=== PATIENT | female | born 1960 | race Caucasian/White ===

== ENCOUNTER 2016-12-23 10:17 | Emergency (ER) | payer MEDICAID ==
[2016-12-23 10:25] VITALS: BP 177/98
[2016-12-23] MEDS ORDERED: Aspirin 81 MG Tab.Chew PO ONE (10:44)
[2016-12-23] MEDS ORDERED: Sodium Chloride 0.9% 10 ML Syringe FLUSH PRN ×2 (11:10→13:38)
--- NOTE | 2016-12-23 11:16 | EDM.PDOC ---
ED HPI GENERAL MEDICAL PROBLEM - General Chief Complaint: Chest Pain Stated Complaint: CHEST PAIN AND RT ARM PAIN Time Seen by Provider: 12/23/16 11:00 Source of Information: Reports: Patient History Limitations: Reports: No Limitations - History of Present Illness INITIAL COMMENTS - FREE TEXT/NARRATIVE: 56-year-old female presents for evaluation and treatment of chest pain. Patient reports that the chest pain began about 6 PM last evening. She states that the pain is located on the right side of her chest and radiates into her right arm, right side of her neck and into her back. She describes it as a sharp, constant sensation. She states that is a 10 out of 10. She is anxious and reports that she feels better when she paces. She states that she can't catch a full breath. States that it hurts to take a deep breath. She reports associated symptoms of nausea, fatigue, diaphoresis and a headache. She denies any fevers, cough, dizziness, syncope, lightheadedness, pain in her legs or swelling in her legs. She tried taking some ibuprofen arouns 4am this morning but did not have any pain relief. Denies any history of cardiac problems. She states that she does have high blood pressure but is not on any medications for this. Blood pressure upon my examination at 1105 was 152/64. She does not know if she has high cholesterol. She is not a diabetic. She was given 4 aspirin upon arrival to the ER. Reports that she went to [place] several weeks ago. Patient reports that she's had shingles in her right arm. This pain feels similar. She was on an antibiotic recently for bladder infection. Last week, Patient was found to have a fracture in her right foot. Apparently the fracture occurred in March. She states she only had this x-ray last week and found that she had a fracture in her foot. 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 [No Known Home Meds] 12/23/16 [History] Past Medical History Genitourinary History: Reports: UTI, Recurrent Musculoskeletal History: Reports: Fracture Other Musculoskeletal History: right ankle Endocrine/Metabolic History: Reports: Obesity/BMI 30+ - Past Surgical History HEENT Surgical History: Reports: Tonsillectomy Female Surgical History: Reports: Hysterectomy Social & Family History - Family History Family Medical History: Noncontributory - Tobacco Use Smoking Status *Q: Never Smoker - Caffeine Use Caffeine Use: Reports: Coffee - Recreational Drug Use Recreational Drug Use: No ED ROS GENERAL - Review of Systems Review Of Systems: See Below Constitutional: Reports: Fatigue, Diaphoresis. Denies: Fever Respiratory: Reports: Shortness of Breath Cardiovascular: Reports: Chest Pain (right sided) GI/Abdominal: Reports: Nausea. Denies: Abdominal Pain, Vomiting : Reports: Other (recent bladder infection, symptoms resolving) Musculoskeletal: Reports: Neck Pain (right lateral neck), Shoulder Pain (right) , Arm Pain (right), Back Pain (right upper). Denies: Leg Pain Neurological: Reports: Headache. Denies: Dizziness, Syncope ED EXAM, GENERAL - Physical Exam Exam: See Below Exam Limited By: No Limitations General Appearance: Alert, WD/WN, Mild Distress, Obese Eye Exam: Bilateral Eye: Conjunctival Injection Ears: Normal External Exam Nose: Normal Inspection Throat/Mouth: Normal Inspection, Normal Lips, Normal Gums, Normal Voice, No Airway Compromise Neck: Normal Inspection, Supple, Tender Lateral (right) Respiratory/Chest: No Respiratory Distress, Lungs Clear, Normal Breath Sounds Cardiovascular: Normal Peripheral Pulses, Regular Rate, Rhythm, No Murmur Peripheral Pulses: 2+: Radial (L), Radial (R), Posterior Tibial (L), Posterior Tibial (R), Dorsalis Pedis (L), Dorsalis Pedis (R) GI/Abdominal: Normal Bowel Sounds, Soft, Non-Tender Back Exam: Normal Inspection Extremities: Normal Inspection, Limited Range of Motion (to the right arm due to pain, unablt to extend arm or fullt abduct arm due to pain) Neurological: Alert, Oriented, Normal Cognition Psychiatric: Normal Affect, Normal Mood Skin Exam: Warm, Dry, Normal Color. No: No Rash EKG INTERPRETATION EKG Date: 12/23/16 Time: 10:20 Rhythm: NSR Rate (Beats/Min): 89 [place]: Normal P-Wave: Present QRS: Normal ST-T: Normal QT: Normal EKG Interpretation Comments: NST at [address]/T wave changes. No LAD/LVH. Reviewed by myself and Dr. Martinez. Course - Vital Signs Last Recorded V/S: Last Vital Signs Temp 36.0 C 12/23/16 10:20 Pulse 78 12/23/16 15:45 Resp 18 12/23/16 15:45 BP 177/98 H 12/23/16 10:20 Pulse Ox 100 12/23/16 15:45 - Orders/Labs/Meds Orders: Active Orders 24 hr Category Date Time Status Cardiac Monitoring [RC] . DIRECTED Care 12/23/16 11:10 Active EKG 12 Lead [EKG Documentation Completion] [RC] STAT Care 12/23/16 10:35 Active Peripheral IV Care [RC] . DIRECTED Care 12/23/16 11:10 Active Peripheral IV Insertion Adult [OM.PC] Routine Oth 12/23/16 11:10 Ordered Labs: Laboratory Tests 12/23/16 12/23/16 12/23/16 Range/Units 10:33 10:33 10:33 WBC 5.87 (3.98-10.04) K/mm3 RBC 4.91 (3.98-5.22) M/mm3 Hgb 14.0 (11.2-15.7) gm/L Hct 42.9 (34.1-44.9) % MCV 87.4 (79.4-94.8) fl MCH 28.5 (25.6-32.2) pg MCHC 32.6 (32.2-35.5) g/dl RDW Std Deviation 45.2 (36.4-46.3) fL Plt Count 256 (182-369) K/mm3 MPV 9.4 (9.4-12.3) fl Neut % (Auto) 63.6 (34.0-71.1) % Lymph % (Auto) 17.9 L (19.3-51.7) % [place] % (Auto) 10.4 (4.7-12.5) % Eos % (Auto) 7.5 H (0.7-5.8) Baso % (Auto) 0.3 (0.1-1.2) % Neut # (Auto) 3.73 (1.56-6.13) K/mm3 Lymph # (Auto) 1.05 L (1.18-3.74) K/mm3 [place] # (Auto) 0.61 H (0.24-0.36) K/mm3 Eos # (Auto) 0.44 H (0.04-0.36) K/mm3 Baso # (Auto) 0.02 (0.01-0.08) K/mm3 PT 10.7 (8.0-13.0) SECONDS INR 0.98 APTT 26 (22-36) SECONDS D-Dimer, Quantitative (0.19-0.59) mg/L Sodium (136-145) mEq/L Potassium (3.5-5.1) mEq/L Chloride (98-107) mEq/L Carbon Dioxide (21-32) mEq/L Anion Gap (5-15) BUN (7-18) mg/dL Creatinine (0.55-1.02) mg/dL Est Cr Clr Drug Dosing mL/min Estimated GFR (MDRD) (>60) mL/min BUN/Creatinine Ratio (14-18) Glucose (74-106) mg/dL Calcium (8.5-10.1) mg/dL Total Bilirubin (0.2-1.0) mg/dL AST (15-37) U/L ALT (14-59) U/L Alkaline Phosphatase (46-116) U/L CK-MB (CK-2) < 0.5 (0-3.6) ng/ml Troponin I < 0.017 (0.00-0.056) ng/mL Total Protein (6.4-8.2) g/dl Albumin (3.4-5.0) g/dl Globulin gm/dL Albumin/Globulin Ratio (1-2) Lipase (73-393) U/L 12/23/16 12/23/16 Range/Units 10:33 10:33 WBC (3.98-10.04) K/mm3 RBC (3.98-5.22) M/mm3 Hgb (11.2-15.7) gm/L Hct (34.1-44.9) % MCV (79.4-94.8) fl MCH (25.6-32.2) pg MCHC (32.2-35.5) g/dl RDW Std Deviation (36.4-46.3) fL Plt Count (182-369) K/mm3 MPV (9.4-12.3) fl Neut % (Auto) (34.0-71.1) % Lymph % (Auto) (19.3-51.7) % [place] % (Auto) (4.7-12.5) % Eos % (Auto) (0.7-5.8) Baso % (Auto) (0.1-1.2) % Neut # (Auto) (1.56-6.13) K/mm3 Lymph # (Auto) (1.18-3.74) K/mm3 [place] # (Auto) (0.24-0.36) K/mm3 Eos # (Auto) (0.04-0.36) K/mm3 Baso # (Auto) (0.01-0.08) K/mm3 PT (8.0-13.0) SECONDS INR APTT (22-36) SECONDS D-Dimer, Quantitative 0.36 (0.19-0.59) mg/L Sodium 139 (136-145) mEq/L Potassium 3.6 (3.5-5.1) mEq/L Chloride 103 (98-107) mEq/L Carbon Dioxide 24 (21-32) mEq/L Anion Gap 15.6 H (5-15) BUN 13 (7-18) mg/dL Creatinine 1.2 H (0.55-1.02) mg/dL Est Cr Clr Drug Dosing 47.84 mL/min Estimated GFR (MDRD) 46 (>60) mL/min BUN/Creatinine Ratio 10.8 L (14-18) Glucose 152 H (74-106) mg/dL Calcium 8.9 (8.5-10.1) mg/dL Total Bilirubin 0.4 (0.2-1.0) mg/dL AST 32 (15-37) U/L ALT 64 H (14-59) U/L Alkaline Phosphatase 126 H (46-116) U/L CK-MB (CK-2) (0-3.6) ng/ml Troponin I (0.00-0.056) ng/mL Total Protein 8.7 H (6.4-8.2) g/dl Albumin 3.9 (3.4-5.0) g/dl Globulin 4.8 gm/dL Albumin/Globulin Ratio 0.8 L (1-2) Lipase 131 (73-393) U/L Meds: Medications Discontinued Medications Generic Name Dose Route Start Last Admin Trade Name Freq PRN Reason Stop Dose Admin Aspirin 324 mg 12/23/16 10:44 12/23/16 10:48 Aspirin PO 12/23/16 10:45 324 mg ONETIME ONE Administration Hydromorphone HCl 1 mg 12/23/16 11:22 12/23/16 11:31 Dilaudid IVPUSH 12/23/16 11:23 1 mg ONETIME ONE Administration Hydromorphone HCl 1 mg 12/23/16 13:11 12/23/16 13:21 Dilaudid IVPUSH 12/23/16 13:12 1 mg ONETIME ONE Administration Sodium Chloride 1,000 mls @ 999 mls/hr 12/23/16 12:00 12/23/16 12:06 Normal Saline IV 12/23/16 13:00 999 mls/hr ONETIME ONE Administration Sodium Chloride 100 mls @ 65 mls/hr 12/23/16 13:45 12/23/16 13:59 Normal Saline IV 65 mls/hr ASDIRECTED [place] Administration Iopamidol 100 ml 12/23/16 13:38 12/23/16 13:59 Isovue-370 (76%) IVPUSH 12/23/16 13:39 100 ml ONETIME ONE Administration Ondansetron HCl 4 mg 12/23/16 11:22 12/23/16 11:29 Zofran IVPUSH 12/23/16 11:23 4 mg ONETIME ONE Administration Sodium Chloride 10 ml 12/23/16 11:10 12/23/16 11:26 Saline Flush FLUSH 10 ml ASDIRECTED PRN Administration Keep Vein Open Sodium Chloride 10 ml 12/23/16 13:38 12/23/16 13:59 Saline Flush FLUSH 10 ml ONETIME PRN Administration IV FLUSH - Radiology Interpretation Free Text/Narrative:: chest [address] Desai: Nothing acute is identified on portable chest xray chest CT pulmonary angiogram impression per Dr. Desai: 1. Atherosclerotic change within the thoracic aorta. Slight aneurysmal dilatation of the ascending aorta 3.9cm. No dissection is seen. 2. Incidental cyst within the liver. 3. No additional abnormality is identified on CT study of the chest. - Re-Assessments/Exams Free Text/Narrative Re-Assessment/Exam: 12/23/16 12:55 Labs returned wbc is 5.87, hgb is 14.0 and plts are 256 sodium is 139, potassium is 3.6 and chloride is 103. anion gap is 15.6. gluclose is 152 AST is 32, ALT is 64 and alk phos is 126 pt is 10.7, INR is 0.98 PTT is 26 CKMB is <0.5 trop is <0.017 d dimer is within normal limits at 0.36 lipase is 131 I reviewed the labs, ekg and chest xray with the patient. I discussed with her further imaging. At this time pain is a 4 or 5 out of 10 with 1mg IV Dilaudid. I am concerned she continues to have such severe pain. She looks uncofotable but no obvious distress. We decided to go ahead and get a chest CT and rule out a dissection or lung mass. 12/23/16 15:[address] results with the patient. I feel she likely has prodromal shingles. Will prescribe her something for pain. Follow-up with her primary care provider this week. We discussed the ascending aortic aneurysm of 3.9 cm. I encouraged her to follow-up with her primary care provider about this. She will likely require monitoring of the aneurysm. She may also need a CT of the abdomen to rule out further aneurysms. Discharge instructions as documented. Departure - Departure Time of Disposition: 15:32 Disposition: Home, Self-Care 01 Condition: Fair Clinical Impression: Atypical chest pain Instructions: Chest Wall Pain Referrals: Vee Oviedo PA-C [Primary Care Provider] - Forms: ED Department Discharge Additional Instructions: percocoet 5-325 #20 given through [facility] you were given medication in the ER that can affect your ability to drive and operate machinery. Do not drive or operate machinery within 12 hours of taking prescription narcotic pain medication. Go home and rest. Percocet 1-2 tabs every 4-6 hours as needed for severe pain. Do not drive or operate machinery within 12 hours of taking the Percocet. Percocet can be habit- forming, I recommend you take as few of these as needed to control your pain. Follow up with your primary care provider early this week. Discuss the ascending aortic aneurysm of 3.9 cm. Also follow-up on your pain and symtpoms. Please return to the ER if your symptoms change or worsen. - My Orders Last 24 Hours: My Active Orders 12/23/16 10:35 EKG 12 Lead [EKG Documentation Completion] [RC] STAT 12/23/16 11:10 Cardiac Monitoring [RC] . DIRECTED Peripheral IV Care [RC] . DIRECTED Peripheral IV Insertion Adult [OM.PC] Routine - Assessment/Plan Last 24 Hours: My Active Orders 12/23/16 10:35 EKG 12 Lead [EKG Documentation Completion] [RC] STAT 12/23/16 11:10 Cardiac Monitoring [RC] . DIRECTED Peripheral IV Care [RC] . DIRECTED Peripheral IV Insertion Adult [OM.PC] Routine
[2016-12-23] MEDS ORDERED: Ondansetron 4 MG/2 ML SDV IVPUSH ONE (11:22)
[2016-12-23] MEDS ORDERED: HYDROmorphone 1 MG/ML Syringe IVPUSH ONE ×2 (11:22→13:11)
[2016-12-23] MEDS ORDERED: Sodium Chloride 0.9% 1,000 ML IV ONE (12:00)
[2016-12-23] MEDS ORDERED: Iopamidol 755 Mg/ML 100 ML Bottle IVPUSH ONE (13:38)
[2016-12-23] MEDS ORDERED: Sodium Chloride 0.9% 100 ML IV SCH (13:45)
--- NOTE | 2016-12-23 14:44 | CT ---
CT chest Technique: Multiple axial sections through the chest were obtained. Reconstructed intravenous contrast was utilized. Study has been performed as an aortogram exam. Findings: Pulmonary arteries show no filling defects to indicate pulmonary embolism. Aorta shows mild atherosclerotic change. Ascending aorta is slightly aneurysmal at 3.9 cm. Descending aorta at the same level measures 2.5 cm. No aortic dissection is seen. Low-density lesion is noted within the left lobe of the liver measuring approximately 1.3 cm in size which has Hounsfield unit measurements of a cyst. Mediastinum and hilar regions show no adenopathy or mass. No axillary adenopathy is seen. Mild areas of atelectasis is seen posteriorly within both lung bases as well as dependent atelectasis within both upper lungs. Lungs otherwise are clear. Bone window settings were reviewed which shows no acute bony abnormality. Impression: 1. Atherosclerotic change within the thoracic aorta. Slight aneurysmal dilatation of the ascending aorta 3.9 cm. No dissection is seen. 2. Incidental cyst within the liver. 3. No additional abnormality is identified on CT study of the chest. Diagnostic code #2
--- NOTE | 2016-12-23 14:46 | CR ---
Chest: Portable view of the chest was obtained. Comparison: No previous chest x-ray. Heart size and mediastinum are normal. Lungs are clear. Bony structures are grossly intact. Impression: 1. Nothing acute is identified on portable chest x-ray. Diagnostic code #1
== END 2016-12-23 15:40 | disposition home or self-care (01) ==
LOC: JD.ED 10:17
DX: R07.89 Other chest pain (principal); E66.9 Obesity, unspecified; Z91.040 Latex allergy status; Z87.440 Personal history of urinary (tract) infections; Z98.890 Other specified postprocedural states; Z90.710 Acquired absence of both cervix and uterus; Z68.33 Body mass index [BMI] 33.0-33.9, adult
CPT/HCPCS: 36415; 71010; 71275; 80053; 82553; 83690; 84484; 85025; 85379; 85610; 85730; 93005; 96361; 96374; 96375; 96376; 99285; A9270; J1170; J2405; J7030; J7040; J7050; Q9967; 99284

== ENCOUNTER 2020-03-09 06:05 | Emergency (ER) | payer BC ==
[2020-03-09 06:27] VITALS: BP 137/77; PULSE 88
--- NOTE | 2020-03-09 06:34 | EDM.PDOC ---
ED HPI GENERAL MEDICAL PROBLEM <Victor Hugo Cruz - Last Filed: 03/09/20 07:21> <Bandar Moreno - Last Filed: 03/09/20 09:07> - General Chief Complaint: Head Injury Stated Complaint: covid positive head injury Time Seen by Provider: 03/09/20 06:22 - History of Present Illness INITIAL COMMENTS - FREE TEXT/NARRATIVE: 59-year-old female presents the emergency room with a head injury. At approximately 430 this morning the patient was taken a shower she fell backwards striking her right parietal region on the tub. Apparently the patient was making some unusual gasping noise immediately after this this did not last very long she did not have a postictal phase following that she just says it hurts to think at this point otherwise is alert and oriented x3 she has not had any nausea or vomiting. Patient has not had any other symptoms. She is fully ambulatory. Patient is COVID positive at this point she was tested last week and the results came back positive on she does have a cough. (Victor Hugo Cruz) - Related Data Allergies Allergy/AdvReac Type Severity Reaction Status Date / Time latex Allergy Anaphylactic Verified 03/09/20 06:27 Shock Home Meds: Home Meds . [No Known Home Meds] 12/23/16 [History] Past Medical History Genitourinary History: Reports: UTI, Recurrent Musculoskeletal History: Reports: Fracture Other Musculoskeletal History: right ankle Endocrine/Metabolic History: Reports: Obesity/BMI 30+ - Past Surgical History HEENT Surgical History: Reports: Tonsillectomy Female Surgical History: Reports: Hysterectomy <Victor Hugo Cruz - Last Filed: 03/09/20 07:21> Social & Family History - Family History Family Medical History: Noncontributory - Caffeine Use Caffeine Use: Reports: Coffee <Victor Hugo Cruz - Last Filed: 03/09/20 07:21> ED ROS GENERAL - Review of Systems Review Of Systems: See Below Constitutional: Reports: No Symptoms HEENT: Reports: No Symptoms Respiratory: Reports: Cough. Denies: No Symptoms, Shortness of Breath, Wheezing, Pleuritic Chest Pain, Sputum, Hemoptysis Cardiovascular: Reports: No Symptoms Endocrine: Reports: No Symptoms GI/Abdominal: Reports: No Symptoms : Reports: No Symptoms Musculoskeletal: Reports: No Symptoms Skin: Reports: No Symptoms Neurological: Reports: Headache (Resulting from the fall no other symptoms other than she feels like she does not think as good as she should.) Psychiatric: Reports: No Symptoms <Victor Hugo Cruz - Last Filed: 03/09/20 07:21> ED EXAM, HEAD INJURY - Physical Exam Exam: See Below Exam Limited By: No Limitations General Appearance: Alert, No Apparent Distress Head: Other (She has palpable tenderness over the right parietal area) Nexus Criteria: No: Posterior, Midline Cervical Tenderness, Evidence of Intoxication, Altered Level of Consciousness, Focal Neurological Deficit, Painful Distraction Injuries Eyes: Bilateral Eye: EOMI, Normal Inspection, PERRL Ears: Normal External Exam, Normal Canal, Hearing Grossly Normal, Normal TMs Nose: Normal Inspection, Normal Mucousa, No Blood Throat/Mouth: Normal Inspection, Normal Lips, Normal Teeth, Normal Gums, Normal Oropharynx, Normal Voice, No Airway Compromise Neck: Non-Tender, Full Range of Motion, Normal Alignment, Normal Inspection. No: Spinous Processes Tender, Tenderness, Tender Lateral, Tender Midline Respiratory: No Respiratory Distress, Lungs Clear, Normal Breath Sounds Cardiovascular: Regular Rate, Rhythm, No Edema, No Murmur GI/Abdominal Exam: Normal Bowel Sounds, Soft, Non-Tender Neurologic: Other (Annual nerves II through XII grossly intact all muscle groups in all 4 extremities are equal and appropriate bilaterally. Cerebellar testing is normal deep tendon reflexes at the brachial radialis is equal and appropriate bilaterally) - [place] Coma Score Best Eye Response ([place]): (4) Open Spontaneously Best Verbal Response ([place]): (5) Oriented Best Motor Response ([place]): (6) Obeys Commands <Victor Hugo Cruz - Last Filed: 03/09/20 07:21> Course <Bandar Moreno - Last Filed: 03/09/20 09:07> - Vital Signs Last Recorded V/S: Last Vital Signs Temp 96.9 F 03/09/20 06:20 Pulse 88 03/09/20 06:20 Resp 18 03/09/20 06:20 BP 137/77 03/09/20 06:20 Pulse Ox 98 03/09/20 06:20 - Orders/Labs/Meds Orders: Active Orders 24 hr Category Date Time Status Head wo Cont [CT] Stat Exams 03/09/20 06:51 Taken - Re-Assessments/Exams Free Text/Narrative Re-Assessment/Exam: 03/09/20 09:[address] Cruz. The head CT shows nothing acute. (Bandar Moreno) Departure <Victor Hugo Cruz - Last Filed: 03/09/20 07:21> - Departure Time of Disposition: 09:10 - Discharge Information *PRESCRIPTION DRUG MONITORING PROGRAM REVIEWED*: Not Applicable *COPY OF PRESCRIPTION DRUG MONITORING REPORT IN PATIENT KAREN: Not Applicable <Bandar Moreno - Last Filed: 03/09/20 09:07> - Departure Disposition: Home, Self-Care 01 Clinical Impression: COVID-19 Head injury Qualifiers: Encounter type: initial encounter Qualified Code(s): S09.90XA - Unspecified injury of head, initial encounter Syncope Qualifiers: Syncope type: unspecified Qualified Code(s): R55 - Syncope and collapse - Discharge Information Referrals: Shweta Cisneros PA-C [Primary Care Provider] - Forms: ED Department Discharge Additional Instructions: Return to the emergency room with any questions problems or worsening symptoms. Allow yourself plenty of rest time. Limit screen time TVs computers phones and tablets as this can make your headache worse and interfere with your sleep pattern. Sleep and nap as much as you feel you need to. Follow-up with your regular healthcare provider early this next week for recheck. Sepsis Event Note (ED) - Focused Exam Vital Signs: Vital Signs Temp Pulse Resp BP Pulse Ox 03/09/20 06:20 96.9 F 88 18 137/77 98
--- NOTE | 2020-04-19 09:36 | CT ---
PROCEDURE INFORMATION: Exam: CT Head Without Contrast Exam date and time: 03/09/2020 7:18 AM Age: 59 years old Clinical indication: Injury or trauma; Patient HX: Head injury TECHNIQUE: Imaging protocol: Computed tomography of the head without contrast. Radiation optimization: All CT scans at this facility use at least one of these dose optimization techniques: automated exposure control; mA and/or kV adjustment per patient size (includes targeted exams where dose is matched to clinical indication); or iterative reconstruction. COMPARISON: CT Ang Head 06/29/2019 1:37 PM FINDINGS: Brain: Normal. No hemorrhage. Unremarkable white matter. No mass effect. Cerebral ventricles: Circumferential calcification redemonstrated posterior to the 3rd ventricle. Bones/joints: Unremarkable. No acute fracture. Paranasal sinuses: Minimal mucosal disease within the ethmoid air cells. Mastoid air cells: Visualized mastoid air cells are well aerated. Soft tissues: Unremarkable. IMPRESSION: No acute intracranial abnormality. Thank you for allowing us to participate in the care of your patient. Dictated and Authenticated by: Marcos Meeks MD 04/17/2020 6:20 AM Central Time ([place] & [place]) [facility]
== END 2020-03-09 09:35 | disposition home or self-care (01) ==
LOC: JD.ED 06:05
DX: S09.90XA Unspecified injury of head, initial encounter (principal); U07.1 COVID-19; R55 Syncope and collapse; E66.9 Obesity, unspecified; Z68.35 Body mass index [BMI] 35.0-35.9, adult; Z91.040 Latex allergy status; W22.8XXA Striking against or struck by other objects, initial encounter
CPT/HCPCS: 70450; 70450-26; 99283; 99283-25